=== PATIENT | male | born 1980 | race African-American/Black ===

== ENCOUNTER 2024-09-06 18:59 | Emergency (ER) | payer MEDICARE ==
[~2024-09-06] VITALS: Ht 188 cm; Wt 263.0 kg
[2024-09-06 19:37] VITALS: TEMP 98.9
[2024-09-06 20:30] VITALS: BP 178/103; PULSE 65; RESP 14; O2SAT 98
[2024-09-06] MEDS ORDERED: ACET-3385 PO (20:56)
[2024-09-06] MEDS ORDERED: IBUP-1492 PO (20:56)
== END 2024-09-06 22:08 | disposition home or self-care (01) ==
LOC: EMS 18:59
DX: S83.91XA Sprain of unspecified site of right knee, initial encounter (principal); S90.32XA Contusion of left foot, initial encounter; I10 Essential (primary) hypertension; F12.90 Cannabis use, unspecified, uncomplicated; F17.210 Nicotine dependence, cigarettes, uncomplicated; Z98.890 Other specified postprocedural states; Z79.899 Other long term (current) drug therapy; W19.XXXA Unspecified fall, initial encounter; Y93.89 Activity, other specified; Y92.89 Other specified places as the place of occurrence of the external cause; Y99.8 Other external cause status
CPT/HCPCS: 99284